=== PATIENT | female | born 1995 | race Caucasian/White ===

== ENCOUNTER → 2018-04-02 | Outpatient (CLI) | payer OTHER ==
[~2018-04-02] MED LIST: CONRAY-43 43% 50ML VIAL (Q9960) As Ordered; LIDOCAINE 1% MDV 20ML VIAL As Ordered; TRIAMCINOLONE ACETONIDE SUSP 40 MG/ML VIAL (J3301) As Ordered
== END ==
LOC: M RADPRO 09:57
DX: M25.551 Pain in right hip (principal)
CPT/HCPCS: 20610

== ENCOUNTER → 2018-06-05 | Outpatient (CLI) | payer OTHER | LOC: M RADPRO 10:25 | DX: M25.551 Pain in right hip (principal) | CPT/HCPCS: 20610 ==

== ENCOUNTER → 2020-12-31 | Outpatient (REF) ==
--- NOTE | 2020-12-31 13:28 | REPPI ---
INDICATION: DISABILITY DDD COMPARISON: None. TECHNIQUE: PA/Lateral FINDINGS: Lungs: Clear, no infiltrate. Heart: Normal in size. Mediastinum: Mediastinal silhouette unremarkable. Pleural angles: Unremarkable.. Bones and soft tissues: Unremarkable. IMPRESSION: No acute pulmonary disease. <Electronically signed by Yordy Erazo > 12/31/20 [id number]
== END ==
LOC: M PLAIMG 12:41
PROVIDERS: ATTEND Internal Medicine
DX: Z02.9 Encounter for administrative examinations, unspecified (principal)